=== PATIENT | female | born 1995 ===

== ENCOUNTER 2017-03-28 12:03 | Emergency (ER) | payer BC ==
[2017-03-28 12:21] VITALS: BP 129/79
--- NOTE | 2017-03-28 12:58 | UC ---
Epistaxis Nasal HPI - HPI Summary HPI Summary: one week of congestion, watering eye, sore throat. no sinus pain or fever. She has ear pain when she swallows. she has no vomiting or significant cough. she has seasonal allergies. she is not taking otc meds now. - History of Current Complaint Chief Complaint: UCRespiratory Stated Complaint: SINUS,SORE THROAT, LEFT EAR PAIN Time Seen by Provider: 03/28/17 12:30 Hx Obtained From: Patient Hx Last Menstrual Period: 02/16/17 Onset/Duration: Gradual Onset, Lasting Days Timing: Constant Severity Initially: Mild Severity Currently: Moderate Aggravating Factor(s): URI Associated Signs And Symptoms: Negative: Sinus Pain, Nasal Discharge, Foreign Body - Allergies/Home Medications Allergies/Adverse Reactions: Allergies Allergy/AdvReac Type Severity Reaction Status Date / Time No Known Allergies Allergy Verified 03/28/17 12:21 Home Medications: Home Medications Nuva Ring 1 dose VAGINAL SEE INSTRUCTIONS 03/28/17 [History Confirmed 03/28/17] PMH/Surg Hx/FS Hx/Imm Hx Endocrine History Of: Reports: Thyroid Disease Denies: Diabetes Cardiovascular History Of: Denies: Cardiac Disorders Respiratory History Of: Reports: Asthma - Surgical History Surgical History: Yes Surgery Procedure, Year, and Place: tonsillectomy - Family History Known Family History: Positive: None, Other - no related ENT family history. - Social History Alcohol Use: Occasionally Substance Use Type: Marijuana Substance Use Comment - Amount & Last Used: yesterday Smoking Status (MU): Former Smoker When Did the Patient Quit Smoking/Using Tobacco: 11/2016 Review of Systems All Other Systems Reviewed And Are Negative: Yes Physical Exam Triage Information Reviewed: Yes Appearance: Well-Appearing, No Pain Distress, Well-Nourished Vital Signs: Initial Vital Signs Temp 99.3 F 03/28/17 12:10 Pulse 78 03/28/17 12:10 Resp 18 03/28/17 12:10 BP 129/79 03/28/17 12:10 Pulse Ox 100 03/28/17 12:10 Vital Signs Reviewed: Yes Eye Exam: Normal Eyes: Positive: Conjunctiva Clear, Conjunctiva Inflamed ENT Exam: Normal ENT: Positive: Pharyngeal erythema, Nasal congestion, TMs normal. Negative: Nasal drainage, TM bulging, TM dull, TM red, Tonsillar swelling, Tonsillar exudate, Trismus, Muffled/hoarse voice Neck exam: Normal Neck: Positive: Supple, Nontender, No Lymphadenopathy. Negative: Nuchal Rigidity Respiratory Exam: Normal Respiratory: Positive: Chest non-tender, Lungs clear, Normal breath sounds, No respiratory distress, No accessory muscle use. Negative: Respiratory distress Cardiovascular Exam: Normal Cardiovascular: Positive: RRR, No Murmur, Pulses Normal, Brisk Capillary Refill Abdominal Exam: Normal Abdomen Description: Positive: Nontender, No Organomegaly, Soft Musculoskeletal Exam: Normal Musculoskeletal: Positive: Strength Intact, ROM Intact, No Edema Neurological Exam: Normal Neurological: Positive: Alert, Muscle Tone Normal, Fatigued Psychological Exam: Normal Skin Exam: Normal Skin: Negative: rashes Epistaxis Nasal Course/Dx - Course Course Of Treatment: allergy symptoms this last week and now persistent sore throat. no signs of bacterial sinusitis or OM. no signs of strep throat. Likely this is allergy or viral URI. We will use jemma D and flonase. - Differential Dx/Diagnosis Differential Diagnosis/HQI/PQRI: Allergic Rhinitis, Coagulopathy, Environmental , Epistaxis, Foreign Body, Hypertension, Sinusitis, Trauma Provider Diagnoses: uri. allergic rhinitis. Discharge - Discharge Plan Condition: Good Disposition: HOME Prescriptions: Fexofenadine-Pseudoephedrine [Jemma-D 24 Hour Allergy] 1 tab PO DAILY WITH MEAL #30 tab Fluticasone NASAL SPRAY 50MCG* [Flonase NASAL SPRAY 50MCG*] 1 spray BOTH NARES BID #1 btl Patient Education Materials: Upper Respiratory Infection (ED), Allergic Rhinitis (ED) Referrals: Non Staff,Doctor [Primary Care Provider] -
== END 2017-03-28 12:58 | disposition home or self-care (01) ==
LOC: UCCORT 12:03
DX: J06.9 Acute upper respiratory infection, unspecified (principal); J45.909 Unspecified asthma, uncomplicated; E07.9 Disorder of thyroid, unspecified; Z87.891 Personal history of nicotine dependence
CPT/HCPCS: 99202; G0463